=== PATIENT | female | born 1960 | race Caucasian/White ===

== ENCOUNTER 2018-03-06 04:55 | Inpatient (IN) | payer OTHER ==
[~2018-03-06] VITALS: Ht 167.6 cm; Wt 66.2 kg
[2018-03-06 05:41] LABS: BASOPHILS # (AUTO) 0.1 K/uL (0.0-0.2); BASOPHILS % (AUTO) 0.7 % (0.0-2.0); EOSINOPHILS # (AUTO) 0.4 K/uL (0.0-0.4); EOSINOPHILS % (AUTO) 4.9 % (0.0-4.0); HEMOGLOBIN 12.8 g/dL (12.0-16.0); LYMPHOCYTES # (AUTO) 1.8 K/uL (1.0-5.5); MEAN CORPUSCULAR HEMOGLOBIN 29 pg (27-31); MEAN CORPUSCULAR HGB CONC 33 % (32-36); MEAN CORPUSCULAR VOLUME 87 fL (79.0-98.0); MONOCYTES # (AUTO) 0.3 K/uL (0.0-1.0); MONOCYTES % (AUTO) 4.2 % (1.7-9.3); NEUTROPHILS # (AUTO) 5.1 K/uL (1.8-7.7); NEUTROPHILS % (AUTO) 66.2 % (40.0-70.0); PLATELET COUNT (AUTO) 259 K/uL (130-430); RED BLOOD CELL COUNT(AUTO) 4.46 MIL/uL (4.2-6.2); RED CELL DISTRIBUTION WIDTH 15.3 % (9.0-15.0); WHITE BLOOD COUNT (AUTO) 7.7 K/uL (4.8-10.8)
[2018-03-06 05:46] LABS: BILIRUBIN,URINE NEGATIVE (NEGATIVE); CLARITY/URINE SL HAZY (CLEAR); COLOR,URINE YELLOW (YELLOW); GLUCOSE,URINE NEGATIVE (NEGATIVE); KETONES,URINE NEGATIVE (NEGATIVE); LEUKOCYTE ESTERASE ,URINE 3+ (NEGATIVE); NITRITE, URINE POSITIVE (NEGATIVE); PH,URINE 7.5 (5.0-8.0); PROTEIN URINE TRACE (NEGATIVE); UROBILINOGEN,URINE 0.2 (0.2-1.0)
[2018-03-06 05:53] LABS: PROTHROMBIN TIME 9.8 SECS (9.5-12.5)
[2018-03-06 05:54] LABS: ALBUMIN 3.3 g/dL (3.4-4.8); CALCIUM 9.4 mg/dL (8.4-11.0); CREATININE 0.6 mg/dL (0.55-1.30); POTASSIUM 3.8 mmol/L (3.5-5.1); TOTAL BILIRUBIN 0.5 mg/dL (0.0-1.0)
[2018-03-06 05:59] LABS: BLOOD, URINE TRACE (NEGATIVE)
[2018-03-06 06:12] LABS: BACTERIA,URINE MANY /HPF (None Seen); WBC,URINE 20-50 /HPF (0-3)
[2018-03-06 06:13] LABS: MUCUS,URINE 1+ /LPF (None Seen)
[2018-03-06] MEDS ORDERED: METH1TAB PO (07:52)
[2018-03-06] MEDS ORDERED: COLL100 PO (07:52)
[2018-03-06] MEDS ORDERED: BISA10SU61 RC (07:52)
[2018-03-06] MEDS ORDERED: MULT-1089 PO (07:52)
[2018-03-06] MEDS ORDERED: POLY119P15 PO (07:52)
[2018-03-06] MEDS ORDERED: ASCO500T20 PO (07:52)
[2018-03-06] MEDS ORDERED: MOM PO (07:52)
[2018-03-06] MEDS ORDERED: ZIN220 PO (07:52)
[2018-03-06] MEDS ORDERED: DITXL5 PO (07:52)
[2018-03-06] MEDS ORDERED: MORPHINE 2 MG/ML INJ. SYRINGE IVP PRN (08:30)
[2018-03-06] MEDS ORDERED: 0.45% NS 500 ML IV ONE (08:30)
[2018-03-06] MEDS ORDERED: PROPOFOL 200MG/ 20ML VIAL (DIPRIVAN) IV ONE (08:40)
[2018-03-06] MEDS ORDERED: LEVOFLOXACIN 750 mg/D5W 150 mL IVPB IV ONE (08:40)
[2018-03-06] MEDS ORDERED: DEXAMETHASONE SOD PHOSPHATE 4 MG/ML VIAL ONE (08:40)
[2018-03-06] MEDS ORDERED: fentaNYL CITRATE/PF 100 MCG/2 ML AMP ONE (08:40)
[2018-03-06] MEDS ORDERED: SEVOFLURANE 15 MIN GAS INH ONE (08:40)
[2018-03-06] MEDS ORDERED: MIDAZOLAM HCL 5 MG/ML VIAL (VERSED) IV ONE (08:40)
[2018-03-06] MEDS ORDERED: BUPIVACAINE /PF 0.25% 30 ML VIAL INJ ONE (08:40)
[2018-03-06] MEDS ORDERED: LR 1,000 ML IV.SOLN IV ONE (08:40)
[2018-03-06] MEDS ORDERED: NS IRRIG SOLN 1000 ML IR ONE (08:40)
[2018-03-06] MEDS ORDERED: DIPHENHYDRAMINE INJ 50 MG/ML VIAL ONE (08:44)
[2018-03-06] MEDS ORDERED: DIPHENHYDRAMINE INJ 50 MG/ML VIAL IVP PRN (08:45)
[2018-03-06] MEDS: FAMOTIDINE PF 20 MG/2 ML VIAL IVP SCH ×2 (09:00→21:28)
[2018-03-06] MEDS ORDERED: fentaNYL CITRATE/PF 100 MCG/2 ML AMP IVP PRN ×2 (09:15)
[2018-03-06] MEDS ORDERED: ONDANSETRON HCL 4 MG/2 ML VIAL IVP PRN (09:15)
[2018-03-06 09:59] VITALS: BP_SYST 132
[2018-03-06] MEDS: methylPREDNISolone SOD SUCC 40 MG/ML VIAL IVP SCH ×2 (15:34→21:28)
[2018-03-06 16:41] VITALS: BP_SYST 132
[2018-03-06 20:21] VITALS: BP_SYST 126
[2018-03-07 00:31] VITALS: BP_SYST 104
[2018-03-07] MEDS: methylPREDNISolone SOD SUCC 40 MG/ML VIAL IVP SCH (06:30)
[2018-03-07 06:37] LABS: BASOPHILS % (AUTO) 0.4 % (0.0-2.0); HEMOGLOBIN 12.2 g/dL (12.0-16.0); LYMPHOCYTES # (AUTO) 0.9 K/uL (1.0-5.5); LYMPHOCYTES % (AUTO) 15.4 % (20.5-51.5); MEAN CORPUSCULAR HEMOGLOBIN 30 pg (27-31); MEAN CORPUSCULAR HGB CONC 34 % (32-36); MEAN CORPUSCULAR VOLUME 88 fL (79.0-98.0); MONOCYTES # (AUTO) 0.1 K/uL (0.0-1.0); MONOCYTES % (AUTO) 2.5 % (1.7-9.3); NEUTROPHILS # (AUTO) 4.9 K/uL (1.8-7.7); NEUTROPHILS % (AUTO) 81.7 % (40.0-70.0); PLATELET COUNT (AUTO) 229 K/uL (130-430); RED CELL DISTRIBUTION WIDTH 14.9 % (9.0-15.0); WHITE BLOOD COUNT (AUTO) 5.9 K/uL (4.8-10.8)
[2018-03-07 08:35] VITALS: BP_SYST 118
[2018-03-07] MEDS ORDERED: LORATADINE 10 MG TABLET PO SCH (09:00)
[2018-03-07] MEDS ORDERED: LORATADINE 10 MG TABLET PO ONE (09:00)
[2018-03-07 10:05] VITALS: BP_SYST 132
== END 2018-03-07 10:05 | DRG 987 ==
LOC: SMU 04:55 → STU 21:38
PROVIDERS: ADMIT Specialist; ATTEND Specialist
PROC: 0JQ80ZZ Repair Abdomen Subcutaneous Tissue and Fascia, Open Approach (ICD-10-PCS; principal; 2018-03-06 07:30)
DX: K94.23 Gastrostomy malfunction (principal); R53.2 Functional quadriplegia; K31.6 Fistula of stomach and duodenum; G35 Multiple sclerosis; E11.9 Type 2 diabetes mellitus without complications; G89.4 Chronic pain syndrome; T36.8X5A Adverse effect of other systemic antibiotics, initial encounter; R21 Rash and other nonspecific skin eruption; N31.9 Neuromuscular dysfunction of bladder, unspecified; K21.9 Gastro-esophageal reflux disease without esophagitis; Y83.3 Surgical operation with formation of external stoma as the cause of abnormal reaction of the patient, or of later complication, without mention of misadventure at the time of the procedure; Z88.4 Allergy status to anesthetic agent; Z88.1 Allergy status to other antibiotic agents; Z88.0 Allergy status to penicillin; Z88.8 Allergy status to other drugs, medicaments and biological substances; Z91.048 Other nonmedicinal substance allergy status; Y92.89 Other specified places as the place of occurrence of the external cause
CPT/HCPCS: 36415; 71045; 80053; 81000-TC; 85025; 85610-TC; 85730-TC; 87081; 87086; 87186-TC; 93005; J1030; J1100; J1200; J1956; J2250; J2704; J3010; J3490; J7120